=== PATIENT | female | born 1980 ===

== ENCOUNTER 2024-12-04 19:57 | Emergency (ER) | payer OTHER ==
[~2024-12-04] VITALS: Ht 167.6 cm; Wt 80.7 kg
[2024-12-04 20:17] VITALS: BP 129/72; O2SAT 98
[2024-12-04] MEDS ORDERED: ORPHENADRINE CITRATE 30 MG/ML AMPUL IM STA (22:07)
[2024-12-04] MEDS ORDERED: KETOROLAC TROMETHAMINE 30 MG VIAL IM STA (22:07)
[2024-12-04] MEDS ORDERED: KETOROLAC TROMETHAMINE 30 MG VIAL ONE (22:18)
[2024-12-04] MEDS ORDERED: ORPHENADRINE CITRATE 30 MG/ML AMPUL ONE (22:19)
== END 2024-12-04 22:29 | disposition home or self-care (01) ==
LOC: ER 20:18
DX: T14.8XXA Other injury of unspecified body region, initial encounter (principal); V49.9XXA Car occupant (driver) (passenger) injured in unspecified traffic accident, initial encounter; Y93.89 Activity, other specified; Y92.413 State road as the place of occurrence of the external cause; Y99.9 Unspecified external cause status; M62.830 Muscle spasm of back; M51.369 Other intervertebral disc degeneration, lumbar region without mention of lumbar back pain or lower extremity pain; Z88.2 Allergy status to sulfonamides